=== PATIENT | male | born 1990 | race Caucasian/White ===

== ENCOUNTER 2016-03-28 18:41 | Emergency (ER) | payer BC, OTHER ==
[~2016-03-28] VITALS: Ht 190.5 cm; Wt 152.8 kg
[~2016-03-28 18:41] MED LIST: ALBUAER2 INH; CARB-157 PO; ESCI10TA17 PO; HYDR-4079 PO; IBUP-1428 PO
[2016-03-28 18:46] VITALS: TEMP 36.6; Ht 190.5 cm; Wt 152.8 kg
[2016-03-28] MEDS ORDERED: CYCL10TA6 PO (19:20)
[2016-03-28] MEDS ORDERED: OXYC-57 PO (19:20)
--- NOTE | 2016-03-28 19:22 | EMERGENCY ROOM VISIT NOTE ---
ED Visit Note First contact with patient: 18:50 CHIEF COMPLAINT: Low back pain HISTORY OF PRESENT ILLNESS: This 26-year-old male patient presents to the emergency department ambulatory complaining of pain in the low back which began to days ago. The patient reports that he was moving heavy furniture, causing pain in his low back. The patient does have a history of chronic low back pain and states that this pain is similar to prior exacerbations of this pain. He has been seen by pain management and has had injections with relief in the past. The pain has been gradually increasing since the onset. The patient notes the pain as sharp and a and 8/10. The patient has taken ibuprofen without relief of the pain. The patient denies any loss of control of their bowel or bladder functions. There has been no leg numbness or weakness, and no change in sensation. No nausea or vomiting or abdominal pain. No chest pain or shortness of breath. No dysuria or increased urinary frequency. REVIEW OF SYSTEMS: A review of systems was performed with positives and pertinent negatives listed in the history of present illness. All other systems were reviewed and are negative. ALLERGIES: No known drug allergies MEDICATIONS: See med list PMH: Asthma SOCIAL HISTORY: The patient lives locally with his . He is a smoker. He admits to occasional alcohol use. PHYSICAL EXAM: VITALS: Vitals are noted on the nurse's note and reviewed by myself. Vital signs stable. GENERAL: This is a 26-year-old male, in no acute distress, nondiaphoretic, well- developed well-nourished. SKIN: The skin was without rashes, erythema, edema, or bruising. Capillary refill less than 2 seconds. NECK: Supple without nuchal rigidity. No cervical spine tenderness. No paraspinous muscle tenderness. HEART: Regular rate and rhythm without murmurs gallops or rubs. LUNGS: Clear to auscultation bilaterally without wheezes, rales or rhonchi. ABDOMEN: Positive bowel sounds x 4. Normal tympanic percussion. Soft, nontender, without masses or organomegaly. Lundberg sign negative. MUSCULOSKELETAL: No muscle atrophy, erythema, or edema noted of the back. There is no tenderness over the lumbar spinous processes. There is tenderness over the paraspinous muscles left. There is no tenderness over the thoracic spine or paraspinous muscles. There are no muscle spasms present. The patient is slow to move around with maximum tenderness with flexion. Negative straight leg raise test. NEURO: Patient was alert and oriented to person place and time. Normal sensation to light and sharp touch. Deep tendon reflexes 2+ in the lower extremities. Dorsalis pedis pulse 2+ bilaterally. Strength 5/5 and equal in the bilateral lower extremities. EMERGENCY DEPARTMENT COURSE: The patient was evaluated as above. He presents with back pain similar to his chronic low back pain. There are no concerning findings to suggest cauda equina syndrome or cord compression. I do not feel that any imaging is necessary at this time. The patient will be placed on a short course of muscle relaxers and pain medication and follow up with his primary care provider and pain management. He will return for any new/ concerning symptoms. He verbalized understanding of my assessment and treatment plan and was discharged home in good condition. The [place] prescription drug monitoring program was queried and no red flags were identified. DIAGNOSIS: Lumbar strain Current/Historical Medications Scheduled Carbidopa/Levodopa (Sinemet 10MG/100MG), 1 TAB PO HS Cyclobenzaprine Hcl (Flexeril), 10 MG PO TID Escitalopram (Lexapro), 10 MG PO DAILY Scheduled PRN Ibuprofen (Motrin), 800 MG PO Q8H PRN for Pain Oxycodone/Acetaminophen 5MG/325MG (Percocet 5MG/325MG), 1-2 TABS PO Q4H PRN for Pain Allergies Coded Allergies: No Known Allergies (Verified Allergy, Unknown, 09/30/07) Vital Signs Date Time Temp Pulse Resp B/P Pulse Ox O2 Delivery O2 Flow Rate FiO2 03/28/16 19:52 81 18 156/89 95 03/28/16 18:46 36.6 84 20 179/98 97 Room Air Departure Information Impression Primary Impression: Lumbar back pain Dispostion Home / Self-Care Condition GOOD Prescriptions Oxycodone/Acetaminophen 5MG/325MG (PERCOCET 5MG/325MG) Tab 1-2 TABS PO Q4H Y for Pain, #20 TAB For Initial Treatment Prov: Sade Joaquin PA-C 03/28/16 Cyclobenzaprine Hcl (FLEXERIL) 10 Mg Tab 10 MG PO TID for 5 Days, #15 TAB Prov: Sade Joaquin PA-C 03/28/16 Referrals No Doctor, Assigned (PCP) Patient Instructions A Signature Page, My [facility] Additional Instructions You have been treated in the Emergency Department for Back Pain. You have been prescribed Percocet to be used for pain control. This is a narcotic medication. You cannot drive or consume alcohol while on this medicine. This medicine should only be used for pain that cannot be controlled with [id number] pain medicines. You have been prescribed Flexeril (cyclobenzaprine) 1-2 tabs orally, three times per day. Do NOT exceed 30 mg (6 tabs) per day. Take your first dose at bedtime as it can make you drowsy. Always take all medications as prescribed. For pain control, you can use the following [id number] medicines (if >12 yo): - Regular strength (325mg/tab) Tylenol (acetaminophen) 2 tabs every 4-6 hours as needed. Do not exceed 12 tablets in a 24 hour period. Avoid taking more than 4 grams (4000 mg) of Tylenol per day. This includes any other sources of acetaminophen you may take on a regular basis. - Regular strength (200 mg/tab) Advil (ibuprofen) 1-2 tabs every 4-6 hours as needed. Do not exceed a dose of 3200 mg per day. If this is an acute injury, ice can be applied to the area of pain for the first 3 days to help decrease pain and inflammation. After the first 3 days, a heating pad can be used over the area for continued soothing relief. You should schedule a follow-up appointment in 2-3 days with your Primary Care Provider for further evaluation and treatment of your back pain. Return to the Emergency Department if your current symptoms worsen despite treatment course outlined above, or if you develop any of the following symptoms : intractable pain despite aforementioned treatment course, loss of control of your bowel or bladder, numbness or tingling in your groin, or development of a fever.
[2016-03-28 19:52] VITALS: BP 156/89; PULSE 81; O2SAT 95
== END 2016-03-28 19:54 | disposition home or self-care (01) ==
LOC: C.EDB 18:42 → C.EDD 19:54
DX: S39.012A Strain of muscle, fascia and tendon of lower back, initial encounter (principal); X58.XXXA Exposure to other specified factors, initial encounter; Y93.89 Activity, other specified; Y99.8 Other external cause status; J45.909 Unspecified asthma, uncomplicated

== ENCOUNTER 2016-07-28 14:04 | Emergency (ER) | payer OTHER ==
[~2016-07-28] VITALS: Ht 190.5 cm; Wt 162.0 kg
[~2016-07-28 14:04] MED LIST changes: -ALBUAER2 INH; -CARB-157 PO; +CARB10TA4 PO; -HYDR-4079 PO
[2016-07-28 14:06] VITALS: TEMP 36.9; Ht 190.5 cm; Wt 162.0 kg
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
[2016-07-28] MEDS ORDERED: ESCI1TAB10 PO (15:01)
[2016-07-28] MEDS ORDERED: LISI-729 PO (15:01)
[2016-07-28 15:25] VITALS: BP 188/74; PULSE 90; O2SAT 96
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
== END 2016-07-28 15:26 | disposition home or self-care (01) ==
LOC: C.EDB 14:05 → C.EDD 15:26
DX: R07.81 Pleurodynia (principal); V86.59XA Driver of other special all-terrain or other off-road motor vehicle injured in nontraffic accident, initial encounter; Y92.89 Other specified places as the place of occurrence of the external cause; I10 Essential (primary) hypertension; J45.909 Unspecified asthma, uncomplicated; Z86.718 Personal history of other venous thrombosis and embolism; Z79.899 Other long term (current) drug therapy; Z72.0 Tobacco use

== ENCOUNTER → 2016-10-20 | Outpatient (CLI) | payer OTHER ==
[~2016-10-20] MED LIST changes: +CARB-157 PO; -CARB10TA4 PO; -ESCI10TA17 PO; +ESCI1TAB10 PO; +LISI-729 PO
--- NOTE | 2016-10-20 08:51 | DIAGNOSTIC IMAGING REPORT ---
RIGHT SHOULDER MIN 2 VIEWS ROUTINE CLINICAL HISTORY: 26 years-old Male presenting with RT SHOULDER PAIN Right. TECHNIQUE: Internal rotation, external rotation, and Grashey views of the right shoulder were obtained. COMPARISON: None. FINDINGS: Glenohumeral and acromioclavicular joints congruent. No evidence of degenerative change. No acute fracture or malalignment. Visualized portion of the right hemithorax normal. IMPRESSION: No acute osseous injury of the right shoulder. Electronically signed by: Anoop Ibarra M.D. 10/20/2016 8:50 AM Dictated Date/Time: 10/20/2016 8:48 AM
== END | disposition home or self-care (01) ==
LOC: C.RADBC 08:28
PROVIDERS: ATTEND Physician Assistant Medical
DX: M25.511 Pain in right shoulder (principal)